=== PATIENT | male | born 1975 | race Caucasian/White ===

== ENCOUNTER 2017-04-28 07:51 | Emergency (ER) | payer OTHER, BC ==
[~2017-04-28 07:51] MED LIST: ADDERALL30 MG PO; ADDERXR30 PO; ASAB PO; FISH OIL1200 MG PO; HYDROCOD APAP PO; LIPITOR20 PO; MYCOSCROI TOP; PCET PO; PERCOCET 10/3251 TAB; PRIN10 PO; V5 PO; ZOCOR40 PO; ZYVOXPO; ZYVOXPO PO
== END 2017-04-28 10:25 | disposition home or self-care (01) ==
LOC: ER 07:51
DX: R51 Headache (principal); M54.5 Low back pain; Z88.1 Allergy status to other antibiotic agents; Z91.018 Allergy to other foods; Z79.899 Other long term (current) drug therapy
CPT/HCPCS: 96372; 99284; A9270-GY; J2550; J2800